=== PATIENT | female | born 1990 | race Caucasian/White ===

== ENCOUNTER 2018-10-15 23:38 | Outpatient (CLI) | END 2018-10-16 02:37 | disposition home or self-care (01) ==

== ENCOUNTER 2018-10-26 17:28 | Outpatient (CLI) | END 2018-10-26 20:50 | disposition home or self-care (01) ==

== ENCOUNTER 2018-11-15 00:40 | Outpatient (CLI) | payer BC ==
[~2018-11-15] VITALS: Ht 163.8 cm; Wt 95.3 kg
[~2018-11-15 00:40] MED LIST: FERR256T PO; PREN-93 PO
[2018-11-15 00:51] VITALS: BP 144/71; PULSE 113; RESP 18; Ht 163.8 cm; Wt 95.3 kg
[2018-11-15] MEDS ORDERED: METH250T21 PO (01:07)
[2018-11-15] MEDS ORDERED: CHOL400C PO (01:07)
[2018-11-15] MEDS ORDERED: ACETAMINOPHEN 325 MG TAB PO ONE (02:00)
[2018-11-15] MEDS ORDERED: GUAIFENESIN 20 MG/ML 5ML CUP PO ONE (02:00)
[2018-11-15] MEDS ORDERED: LACTATED RINGER'S 1,000 ML IV ONE (02:00)
--- NOTE | 2018-11-15 02:00 | PN ---
Triage Information Date/Time Reason for visit: Flulike symptoms and elevated blood pressures Weeks of Gestation Patient is a 27-year-old 1 para 0 at 29 weeks and 6 days of gestation with estimated date of delivery January 25, 2019 She presents with flulike symptoms, cough, headache and body ache Patient was diagnosed with preeclampsia a week ago in the clinic and placed on Aldomet She recently had done a 24-hour urine protein collection which was given to the clinic and the results are pending She reports positive movement, denies any vaginal bleeding or leaking fluid, denies any uterine contractions /Para 1 para 0 Diabetes: none Hypertention: induced Additional information Patient is currently taking Aldomet Objective Vital Signs Date Temp Pulse Resp B/P (MAP) Pulse Ox O2 O2 Flow FiO2 Time Delivery Rate 11/15/18 98.1 113 18 144/71 Room Air 00:51 (95) Heart Rate: 140's Heart Rate Comments heart rate tracing category 1 Contractions: None Results/Medications Results 24 hrs Laboratory Tests Test 11/15/18 00:58 Bedside Glucose 128 Urine Results - 72 Hrs Test 11/15/18 00:45 Urine Color STRAW (YELLOW) Urine Clarity CLEAR (CLEAR) Urine pH 7.0 (5.0-9.0) Urine Specific [place] 1.002 (1.003-1.030) Urine Ketones NEGATIVE mg/dL (NEGATIVE) Urine Nitrite NEGATIVE mg/dL (NEGATIVE) Urine Bilirubin NEGATIVE mg/dL (NEGATIVE) Urine Urobilinogen NEGATIVE mg/dL (NEGATIVE) Urine Leukocyte Esterase NEGATIVE Kimberly/ul Urine Hemoglobin NEGATIVE mg/dL (NEGATIVE) Urine Glucose NEGATIVE mg/dL (NEGATIVE) Urine Total Protein NEGATIVE mg/dl (NEGATIVE) Hematology - 72 Hrs Test 11/15/18 02:40 Hematocrit 39.7 % (37.0-47.0) Hemoglobin 13.0 g/dl (12.0-16.0) Mean Corpuscular Hemoglobin 26.7 pg (29.0-33.0) L Mean Corpuscular Hemoglobin Concent 32.7 g/dl (32.0-37.0) Mean Corpuscular Volume 81.5 fl (82.0-101.0) L Mean Platelet Volume 9.1 fl (7.4-10.4) Platelet Count 216 10^3/UL (140-415) Red Blood Count 4.87 10^6/ul (4.20-5.40) Red Cell Distribution Width 14.0 % (11.5-14.5) White Blood Count 11.9 10^3/ul (4.8-10.8) H Chemistry Test 11/15/18 00:58 11/15/18 02:40 Bedside Glucose 128 mg/dL (70-220) Sodium Level 138 mmol/L (135-144) Potassium Level 3.1 mmol/L (3.5-5.1) L Chloride Level 107 mmol/L (97-110) Carbon Dioxide Level 22 mmol/L (21-31) Anion Gap 9 (5-13) Blood Urea Nitrogen 5 mg/dl (7-20) L Creatinine 0.32 mg/dl (0.44-1.00) L Est Glomerular Filtrat > 60 mL/min (>60) Rate mL/min Glucose Level 109 mg/dl (70-220) Uric Acid 3.5 mg/dl (3.1-7.9) Calcium Level 9.5 mg/dl (8.4-10.2) Total Bilirubin 0.0 mg/dl (0.2-1.3) L Direct Bilirubin 0.00 mg/dl (0.00-0.20) Indirect Bilirubin 0.0 mg/dl (0-1.1) Aspartate Amino Transf (AST/SGOT) 16 IU/L (15-46) Alanine 12 IU/L (13-69) L Aminotransferase (ALT/SGPT) Alkaline Phosphatase 139 IU/L (42-121) H Total Protein 6.4 g/dl (6.1-8.1) Albumin 3.4 g/dl (3.3-4.9) Globulin 3.00 g/dl (1.3-3.2) Albumin/Globulin Ratio 1.13 Imaging Results PROCEDURE: Biophysical profile. CLINICAL INDICATION: Pelvic pain, hypertension. TECHNIQUE: Multiple sonographic images of the pelvis were obtained with transabdominal technique. COMPARISON: 10/16/2018. FINDINGS: There is a single living intrauterine gestation with the fetus in a vertex position. The placenta is posterior in location, grade 1. heart tones of 146 beats per minute are identified. There is normal amniotic fluid volume with an MAHAMED of 12.2 cm. breathing movements = 2 Gross body movements = 2 tone = 2 Qualitative AFV = 2 IMPRESSION: Biophysical profile 8 out of 8. .Ronald Akins MD, MD Date Time Electronically viewed and signed by .Ronald Akins MD, MD on 11/15/2018 02:27 .T/ CC: NIRAV PEREZ MD [phone] Disposition: Discharge Assessment/Plan Patient received IV fluid, Tylenol and cough medicine while here Patient was counseled to increase p.o. hydration She was instructed to follow-up with her own [facility]ACTICE SUPPORT SPECIALIST in 1-2 days NIRAV PEREZ MD Nov 15, 2018 02:00
[2018-11-15] MEDS ORDERED: LACTATED RINGER'S 1,000 ML IV SCH (03:00)
[2018-12-06] MEDS ORDERED: METH250T21 PO (04:51)
== END 2018-11-15 04:00 | disposition home or self-care (01) ==
LOC: OBT 00:40 → L-D 00:40 → OBT 04:00
PROVIDERS: ATTEND Obstetrics & Gynecology
DX: O26.893 Other specified pregnancy related conditions, third trimester (principal); R05 Cough; R21 Rash and other nonspecific skin eruption; M79.10 Myalgia, unspecified site; O14.93 Unspecified pre-eclampsia, third trimester; Z3A.29 29 weeks gestation of pregnancy
CPT/HCPCS: 36415; 76818; 80053; 81003; 82962; 84560; 85025; 85384; 85610; 85730; 87086; 87400; 96360; 96361; J7120; Z7500; Z7610; G0463